=== PATIENT | male | born 1945 | race Two or more races ===

== ENCOUNTER 2018-07-03 13:32 | Inpatient (IN) | payer OTHER, MEDICAID ==
[~2018-07-03] VITALS: Ht 162.6 cm; Wt 90.7 kg
[2018-07-03 18:04] LABS: BASOPHIL % 0.1 % (0-2); PLATELET COUNT 331 x10^3mcL (130-400)
[2018-07-03 18:05] LABS: RED CELL DISTRIBUTION WIDTH 14.8 % (11.5-14.5)
[2018-07-03 18:06] LABS: UA SPECIFIC GRAVITY >=1.030 (1.005-1.035); microscopic required? YES; urine erythrocyte NEGATIVE (NEGATIVE)
[2018-07-03 18:09] LABS: CALCIUM 8.5 mg/dL (8.5-10.1); CARBON DIOXIDE 29.5 mmol/L (21-32); CHLORIDE SERUM 99 mmol/L (98-107); CREATININE SERUM 1.3 mg/dL (0.7-1.3); GLUCOSE SERUM 142 mg/dL (74-106); POTASSIUM SERUM 5.2 mmol/L (3.5-5.1); SODIUM SERUM 135 mmol/L (136-145)
[2018-07-03 18:21] LABS: ALBUMIN 3.5 g/dL (3.4-5.0); ALKALINE PHOSPHATASE 62 U/L (46-116); ALT/SGPT 35 U/L (16-63); AMYLASE 35 U/L (25-115); AST/SGOT 38 U/L (15-37); BILIRUBIN TOTAL 2.74 mg/dL (0.20-1.00); LIPASE 61 IU/L (73-393); T4(THYROXINE) 6.2 ug/dL (4.7-13.3); TOTAL PROTEIN, SERUM 7.3 g/dL (6.4-8.2)
[2018-07-03] MEDS ORDERED: TOPROL XL25 MG PO (22:11)
[2018-07-03] MEDS ORDERED: SIMVASTATIN20 M1 PO (22:12)
[2018-07-03] MEDS ORDERED: LISINOPRIL2.5 MG PO (22:13)
[2018-07-03 23:14] VITALS: BP 120/72
[2018-07-03 23:16] LABS: MAGNESIUM 2.3 mg/dL (1.8-2.4)
[2018-07-03 23:18] LABS: CHOLESTEROL/HDL RATIO 2.3
[2018-07-03 23:19] VITALS: Ht 162.6 cm; Wt 90.7 kg
[2018-07-04 03:07] LABS: AMPHETAMINE QUAL UR NONE DETECTED (See below)
[2018-07-04 05:47] VITALS: BP 120/81
[2018-07-04 09:00] LABS: PLATELET COUNT 307 x10^3mcL (130-400)
[2018-07-04 09:13] LABS: BASOPHIL % 0 % (0-2); RED CELL DISTRIBUTION WIDTH 14.8 % (11.5-14.5)
[2018-07-04 09:30] LABS: CARBON DIOXIDE 27.2 mmol/L (21-32); CHLORIDE SERUM 103 mmol/L (98-107); GLUCOSE SERUM 118 mg/dL (74-106); MAGNESIUM 2.2 mg/dL (1.8-2.4); PHOSPHOROUS 3.3 mg/dL (2.5-4.9); POTASSIUM SERUM 4.6 mmol/L (3.5-5.1); SODIUM SERUM 136 mmol/L (136-145)
[2018-07-04 10:16] VITALS: BP 120/84
[2018-07-04 17:14] VITALS: BP 134/66
[2018-07-04 17:16] VITALS: BP 112/77; BP 134/73
[2018-07-04 20:47] VITALS: BP 109/71
[2018-07-05 06:39] VITALS: BP 105/65
[2018-07-05 06:40] LABS: CALCIUM 7.6 mg/dL (8.5-10.1); CARBON DIOXIDE 28.4 mmol/L (21-32); CHLORIDE SERUM 106 mmol/L (98-107); CREATININE SERUM 1.2 mg/dL (0.7-1.3); GLUCOSE SERUM 120 mg/dL (74-106); MAGNESIUM 2.3 mg/dL (1.8-2.4); PHOSPHOROUS 4.4 mg/dL (2.5-4.9); POTASSIUM SERUM 4.1 mmol/L (3.5-5.1); SODIUM SERUM 138 mmol/L (136-145)
[2018-07-05 08:13] VITALS: BP 110/70
[2018-07-05 08:32] LABS: PLATELET COUNT 299 x10^3mcL (130-400)
[2018-07-05 08:46] LABS: BASOPHIL % 0 % (0-2); RED CELL DISTRIBUTION WIDTH 14.9 % (11.5-14.5)
[2018-07-05 17:30] VITALS: BP 90/56
[2018-07-05 21:03] VITALS: BP 118/62
[2018-07-06 05:46] VITALS: BP 115/61
[2018-07-06 06:16] LABS: BASOPHIL % 0.2 % (0-2); PLATELET COUNT 292 x10^3mcL (130-400)
[2018-07-06 06:27] LABS: CALCIUM 7.8 mg/dL (8.5-10.1); CARBON DIOXIDE 30.1 mmol/L (21-32); CHLORIDE SERUM 105 mmol/L (98-107); CREATININE SERUM 1.1 mg/dL (0.7-1.3); GLUCOSE SERUM 129 mg/dL (74-106); MAGNESIUM 2.6 mg/dL (1.8-2.4); PHOSPHOROUS 2.6 mg/dL (2.5-4.9); POTASSIUM SERUM 3.5 mmol/L (3.5-5.1); SODIUM SERUM 141 mmol/L (136-145)
[2018-07-06 06:48] LABS: RED CELL DISTRIBUTION WIDTH 15.1 % (11.5-14.5)
[2018-07-06 09:31] VITALS: BP 123/70
[2018-07-06 16:55] VITALS: BP 105/64
[2018-07-06 21:01] VITALS: BP 111/67
[2018-07-07 05:56] VITALS: BP 127/72
[2018-07-07 06:56] LABS: BILIRUBIN DIRECT 0.19 mg/dL (0.0-0.2); BILIRUBIN TOTAL 0.7 mg/dL (0.20-1.00)
[2018-07-07 07:03] LABS: ALBUMIN 1.9 g/dL (3.4-5.0); TOTAL PROTEIN, SERUM 5.8 g/dL (6.4-8.2)
[2018-07-07 08:38] VITALS: BP 125/71
[2018-07-07 17:11] VITALS: BP 116/68
[2018-07-07 20:43] VITALS: BP 127/73
[2018-07-08 05:30] VITALS: BP 121/73
[2018-07-08 06:12] LABS: MAGNESIUM 2.4 mg/dL (1.8-2.4); PHOSPHOROUS 3.2 mg/dL (2.5-4.9)
[2018-07-08 06:15] LABS: BASOPHIL % 0.1 % (0-2); PLATELET COUNT 368 x10^3mcL (130-400); RED CELL DISTRIBUTION WIDTH 14.4 % (11.5-14.5)
[2018-07-08 06:34] LABS: ALKALINE PHOSPHATASE 65 U/L (46-116); ALT/SGPT 56 U/L (16-63); AST/SGOT 44 U/L (15-37); BILIRUBIN TOTAL 1.08 mg/dL (0.20-1.00); CALCIUM 7.9 mg/dL (8.5-10.1); CARBON DIOXIDE 34.5 mmol/L (21-32); CHLORIDE SERUM 105 mmol/L (98-107); CREATININE SERUM 1.1 mg/dL (0.7-1.3); GLUCOSE SERUM 122 mg/dL (74-106); POTASSIUM SERUM 3.8 mmol/L (3.5-5.1); SODIUM SERUM 143 mmol/L (136-145); TOTAL PROTEIN, SERUM 5.9 g/dL (6.4-8.2)
[2018-07-08 08:51] VITALS: BP 120/69
[2018-07-08 17:20] VITALS: BP 117/72
[2018-07-08 20:34] VITALS: BP 121/62
[2018-07-09 05:35] VITALS: BP 116/68
[2018-07-09 06:22] LABS: CARBON DIOXIDE 30.9 mmol/L (21-32); CHLORIDE SERUM 109 mmol/L (98-107); CREATININE SERUM 0.9 mg/dL (0.7-1.3); GLUCOSE SERUM 120 mg/dL (74-106); MAGNESIUM 2.4 mg/dL (1.8-2.4); PHOSPHOROUS 3.5 mg/dL (2.5-4.9); POTASSIUM SERUM 3.9 mmol/L (3.5-5.1); SODIUM SERUM 145 mmol/L (136-145)
[2018-07-09 06:58] LABS: BASOPHIL % 0.2 % (0-2); PLATELET COUNT 380 x10^3mcL (130-400); RED CELL DISTRIBUTION WIDTH 14.5 % (11.5-14.5)
[2018-07-09 10:38] VITALS: BP 127/66
[2018-07-09 16:19] VITALS: BP 126/76
[2018-07-09 20:45] VITALS: BP 127/68
[2018-07-10 05:47] VITALS: BP 113/72
[2018-07-10 06:06] LABS: BASOPHIL % 0.3 % (0-2)
[2018-07-10 06:36] LABS: CALCIUM 7.9 mg/dL (8.5-10.1); CARBON DIOXIDE 27.1 mmol/L (21-32); CHLORIDE SERUM 107 mmol/L (98-107); CREATININE SERUM 0.8 mg/dL (0.7-1.3); GLUCOSE SERUM 129 mg/dL (74-106); MAGNESIUM 2.1 mg/dL (1.8-2.4); PHOSPHOROUS 3.4 mg/dL (2.5-4.9); POTASSIUM SERUM 3.5 mmol/L (3.5-5.1); SODIUM SERUM 142 mmol/L (136-145)
[2018-07-10 07:01] LABS: PLATELET COUNT 436 x10^3mcL (130-400); RED CELL DISTRIBUTION WIDTH 14.8 % (11.5-14.5)
[2018-07-10 09:23] VITALS: BP 117/65
[2018-07-10 17:04] VITALS: BP 121/64
[2018-07-10 21:25] VITALS: BP 121/67
[2018-07-11 05:28] VITALS: BP 119/69
[2018-07-11 06:19] LABS: BASOPHIL % 0.3 % (0-2)
[2018-07-11 06:34] LABS: PLATELET COUNT 429 x10^3mcL (130-400); RED CELL DISTRIBUTION WIDTH 14.8 % (11.5-14.5)
[2018-07-11 06:44] LABS: CARBON DIOXIDE 28.2 mmol/L (21-32); CHLORIDE SERUM 105 mmol/L (98-107); CREATININE SERUM 0.7 mg/dL (0.7-1.3); GLUCOSE SERUM 112 mg/dL (74-106); POTASSIUM SERUM 3.8 mmol/L (3.5-5.1); SODIUM SERUM 137 mmol/L (136-145)
[2018-07-11 09:26] VITALS: BP 117/61
[2018-07-11 17:09] VITALS: BP 124/73
[2018-07-11 20:43] VITALS: BP 108/71
[2018-07-12 04:54] VITALS: BP 115/68
[2018-07-12 07:26] LABS: PLATELET COUNT 535 x10^3mcL (130-400); RED CELL DISTRIBUTION WIDTH 15.2 % (11.5-14.5)
[2018-07-12 07:37] LABS: CALCIUM 8.2 mg/dL (8.5-10.1); CARBON DIOXIDE 22.9 mmol/L (21-32); CHLORIDE SERUM 103 mmol/L (98-107); CREATININE SERUM 0.8 mg/dL (0.7-1.3); GLUCOSE SERUM 118 mg/dL (74-106); SODIUM SERUM 135 mmol/L (136-145)
[2018-07-12 08:53] VITALS: BP 103/70
[2018-07-12 09:06] LABS: ATYPICAL LYMPH 2 %; BAND NEUTROPHIL 0 % (0-10); BASOPHIL 0 % (0-2); SEGMENTED NEUTROPHILS 94 % (37-75)
[2018-07-12 09:07] LABS: PLATELET MORPHOLOGY PLATELETS INCREASED; rbc morphology (normal/abnorm) ABNORMAL (NORMAL)
[2018-07-12 17:10] VITALS: BP 126/63
[2018-07-12 20:40] VITALS: BP 129/74
[2018-07-13 05:40] VITALS: BP 110/58
[2018-07-13 07:05] LABS: CALCIUM 8.4 mg/dL (8.5-10.1); CARBON DIOXIDE 24.8 mmol/L (21-32); CHLORIDE SERUM 104 mmol/L (98-107); CREATININE SERUM 0.8 mg/dL (0.7-1.3); GLUCOSE SERUM 96 mg/dL (74-106); PHOSPHOROUS 3.5 mg/dL (2.5-4.9); POTASSIUM SERUM 4.6 mmol/L (3.5-5.1); SODIUM SERUM 136 mmol/L (136-145)
[2018-07-13 07:10] LABS: ALBUMIN 2.3 g/dL (3.4-5.0)
[2018-07-13 08:45] LABS: RED CELL DISTRIBUTION WIDTH 14.5 % (11.5-14.5)
[2018-07-13 08:52] LABS: PLATELET COUNT 549 x10^3mcL (130-400)
[2018-07-13 09:48] VITALS: BP 117/64
[2018-07-13 11:38] LABS: BAND NEUTROPHIL 0 % (0-10); BASOPHIL 0 % (0-2); MONOCYTE 9 % (0-7); SEGMENTED NEUTROPHILS 90 % (37-75)
[2018-07-13 11:39] LABS: rbc morphology (normal/abnorm) ABNORMAL (NORMAL)
[2018-07-13 17:19] VITALS: BP 99/51
[2018-07-13 19:35] VITALS: BP 121/67
[2018-07-14 04:56] VITALS: BP 106/70
[2018-07-14 06:07] LABS: BASOPHIL % 0.3 % (0-2)
[2018-07-14 06:15] LABS: PLATELET COUNT 499 x10^3mcL (130-400); RED CELL DISTRIBUTION WIDTH 15.3 % (11.5-14.5)
[2018-07-14 06:19] LABS: CALCIUM 8.3 mg/dL (8.5-10.1); CARBON DIOXIDE 26.4 mmol/L (21-32); CHLORIDE SERUM 105 mmol/L (98-107); GLUCOSE SERUM 92 mg/dL (74-106); POTASSIUM SERUM 4.8 mmol/L (3.5-5.1); SODIUM SERUM 138 mmol/L (136-145)
[2018-07-14 09:04] VITALS: BP 114/64
[2018-07-14] MEDS ORDERED: LEVAQUIN500 M1 PO (10:16)
[2018-07-14 10:26] VITALS: BP 114/64
== END 2018-07-14 13:20 | disposition home health service (06) | DRG 329 ==
LOC: ED 13:32 → MU 21:23
PROVIDERS: Emergency Medicine; Family Medicine; Internal Medicine; Surgery
PROC: 0DB80ZZ Excision of Small Intestine, Open Approach (ICD-10-PCS; principal; 2018-07-04 11:30)
DX: K56.51 Intestinal adhesions [bands], with partial obstruction (principal); N17.0 Acute kidney failure with tubular necrosis; E43 Unspecified severe protein-calorie malnutrition; K55.029 Acute infarction of small intestine, extent unspecified; E87.1 Hypo-osmolality and hyponatremia; J98.11 Atelectasis; K56.2 Volvulus; N43.3 Hydrocele, unspecified; R74.0 Nonspecific elevation of levels of transaminase and lactic acid dehydrogenase [LDH]; E83.41 Hypermagnesemia; E83.51 Hypocalcemia; E87.5 Hyperkalemia; R80.9 Proteinuria, unspecified; E78.5 Hyperlipidemia, unspecified; D47.3 Essential (hemorrhagic) thrombocythemia; D53.9 Nutritional anemia, unspecified; Z68.34 Body mass index [BMI] 34.0-34.9, adult
CPT/HCPCS: 82962; 97110-GP; 97116-GP; 97530-GP; 97535-GP; C1751; C9113; J0330; J0500; J0690; J0696; J1170; J1644; J1885; J1940; J2543; J2550; J2710; J2765; J3010; J3490; J7030; J7040; J7050; J7120; J7131; J8597; Q0092; Q9967